=== PATIENT | male | born 1970 | race Asian ===

== ENCOUNTER 2019-07-17 10:09 | Inpatient (IN) | payer OTHER ==
[~2019-07-17] VITALS: Ht 172.7 cm; Wt 79.4 kg
--- NOTE | 2019-07-17 10:18 | NUR ---
EKG IN PROGRESS.
--- NOTE | 2019-07-17 10:34 | NUR ---
PATIENTS FRIEND STS THAT PT FELL TODAY. PATIENT STS THAT HE HAS A H/A AND ALSO STATES THAT HE FEELS SORE AND LIKE HE CAN'T STAND, PATIENT STATES THAT THIS HAS STARTED TODAY. PATIENT DENIES N/V/D.
--- NOTE | 2019-07-17 11:23 | NUR ---
DR. CASTRO AWARE OF HIGH B/P. WOULD LIKE TO INITIATE CATSCAN EXAM PRIOR TO MEDICATING.
[2019-07-17 11:40] LABS: BASOPHIL % 0.5 % (0-2); PLATELET COUNT 224 x10^3mcL (130-400); RED CELL DISTRIBUTION WIDTH 13.7 % (11.5-14.5)
[2019-07-17 12:04] LABS: CALCIUM 8.9 mg/dL (8.5-10.1); CARBON DIOXIDE 29.9 mmol/L (21-32); CHLORIDE SERUM 99 mmol/L (98-107); CREATININE SERUM 1.3 mg/dL (0.7-1.3); GFR1 > 60 mL/min; GLUCOSE SERUM 222 mg/dL (74-106); SODIUM SERUM 139 mmol/L (136-145)
[2019-07-17 12:09] LABS: ALBUMIN 3.9 g/dL (3.4-5.0); ALKALINE PHOSPHATASE 55 U/L (46-116); ALT/SGPT 15 U/L (16-63); AST/SGOT 15 U/L (15-37); BILIRUBIN TOTAL 0.6 mg/dL (0.20-1.00)
[2019-07-17 12:15] LABS: TOTAL PROTEIN, SERUM 8.4 g/dL (6.4-8.2)
--- NOTE | 2019-07-17 12:46 | NUR ---
PATIENT ASSISTED TO RESTROOM AT THIS TIME. NO PROBLEMS NOTED. [facility]
--- NOTE | 2019-07-17 13:31 | NUR ---
TELE NEURO DONE AT THIS TIME. ASSESSMENT DONE, AND ALL QUESTIONS ANSWERED PER . PER DR, HE BELIEVES THAT THE PATIENTS SYMPTOMS ARE ARISING FROM THE HIGH B/P. CONNECTION LOST AT THIS TIME. WILL AWAIT IF THE DOCOR CALLS BACK.
--- NOTE | 2019-07-17 14:55 | NUR ---
DR NOTIFIED OF PATIENTS B/P STILL REMAINING HIGH. DR WILL ORDER HYDRALIZINE. WILL AWAIT ORDERS.
[2019-07-17 15:54] LABS: T3 TOTAL 1.13 ng/mL
[2019-07-17 15:59] LABS: FREE T4 1.24 ng/dL (0.76-1.46); FREE THYROXINE INDEX 3.3 ug/dL (1.4-4.5); T4(THYROXINE) 9.7 ug/dL (4.7-13.3)
[2019-07-17 16:13] LABS: CHOLESTEROL/HDL RATIO 3.5; MAGNESIUM 2.2 mg/dL (1.8-2.4); PHOSPHOROUS 2.9 mg/dL (2.5-4.9)
--- NOTE | 2019-07-17 16:50 | NUR ---
DR HODGES INFORMED OF PATIENTS B/P REMAINING HIGH. WILL ORDER LABETLOL. WILL AWAIT ORDERS.
--- NOTE | 2019-07-17 17:59 | NUR ---
INFORMED DR HODGES THAT B/P IS 175/102. PER DR. HODGES, REASSESS PATIENT WITH A LARGER B/P CUFF.
--- NOTE | 2019-07-17 18:00 | NUR ---
REASSESSED PATIENTS B/P WITH LARGER CUFF. B/P READS: 185/112. WILL INFORM DR AT THIS TIME.
--- NOTE | 2019-07-17 18:14 | NUR ---
DR. HODGES AWARE OF PATIENTS B/P BEING 176/[address] HODGES, WILL ORDER PO B/P MEDICATION. WILL AWAIT ORDERS AT THIS TIME
--- NOTE | 2019-07-17 18:52 | NUR ---
PT IN BED RECEIVING U/S AT THIS TIME.
--- NOTE | 2019-07-17 19:02 | NUR ---
INFORMED GRACE CORTEZ OF PATIENTS B/P NOT BEING STABLE AT THIS TIME, AND NOT READY FOR TRANSFER AT THIS TIME.
--- NOTE | 2019-07-17 19:08 | NUR ---
RECEIVED REPORT FROM JAMES DAY SHIFT RN. PT SITTING COMFORTABLY IN GURNEY, AWAKE AND ALERT, RESP E/U, DENIES PAIN OR DIZZINESS. WILL CONTINUE TO MONITOR.
--- NOTE | 2019-07-17 19:21 | NUR ---
REPORT GIVEN TO GRACE KILGORE ON TELE TO ASSUME CARE FOR PT.
--- NOTE | 2019-07-17 19:29 | NUR ---
PT TRANSPORTED TO TELE AT THIS TIME BY EMT ANTHONY AND RN EDIS. PT IS AWAKE AND ALERT, RESP E/U, DENIES PAIN. VERBALIZED UNDERSTANDING OF PLAN OF CARE FOR ADMISSION. ACCOMPANIED BY FAMILY.
--- NOTE | 2019-07-17 19:35 | NUR ---
RECEIVED PT FROM ED VIA Sensitive Object, CAME IN DUE TO DIZZINESS. AAOX4. DENIES HEADACHE/DIZZINESS. ABLE TO FOLLOW SIMPLE COMMANDS. SPEECH IS CLEAR. HAND CORRESPONDENCE TRANSCRIBER ARE EQUAL. DENIES NUMBNESS/TINGLING SENSATION. NO SOB NOTED, LUNG SOUNDS CTA. DENIES CHEST PAIN/PRESSURE, SR W/ DEPRESSED T WAVE. DENIES ABDOMINAL DISCOMFORT. BOWEL SOUNDS ACTIVE. HAD A REGULAR BM TODAY. VOIDS. W/ DARK DISCOLORATION AND DRY SKIN, CALI. IV SITE ON THE RAC GAUGE 18 IS PATENT AND INTACT. SIDE RAILS UPX2. CALL LIGHT ON REACH. PT'S BROTHER AT BEDSIDE. LATEST JP=480/96. ENDORSED TO PRIMARY NURSE HUMBERTO FOR CONTINUITY OF CARE
[2019-07-17 19:51] VITALS: BP 165/96
[2019-07-17 19:59] VITALS: Ht 172.7 cm; Wt 79.4 kg
--- NOTE | 2019-07-17 20:45 | NUR ---
SPOKE WITH DR MATOS REGARDING PT'S BP, NO NEW ORDER RECEIVE AT THIS TIME, ALSO DR MATOS MADE AWARE OF TELE NEURO CONSULT WITH MRI BRAIN SUGGESTION BUT PER DR MATOS DAY TEAM IS AWARE OF IT.
[2019-07-17 21:15] LABS: microscopic required? NO
[2019-07-17 21:27] LABS: UA SPECIFIC GRAVITY <=1.005 (1.005-1.035); urine erythrocyte NEGATIVE (NEGATIVE)
[2019-07-17 21:36] LABS: AMPHETAMINE QUAL UR NONE DETECTED (See below)
--- NOTE | 2019-07-18 05:19 | NUR ---
PT THIS MORNING BP-184/107, NO PRN ANTI-HYPERTENSIVE MEDS IN ORDERS, PT DENIES ANY CHEST PAIN, CHEST DISCOMFORT, HEADACHE OR DIZZINESS, DR GRAF MADE AWARE, PER DR MCNEIL THAT PT IS ON permissive hypertension TREATMENT SO NO MEDS NEED TO GIVE AT THIS TIME.
[2019-07-18 05:46] VITALS: BP 184/107
--- NOTE | 2019-07-18 06:03 | NUR ---
DR SY AT BEDSIDE AND EVAL, DISCUSSED POC WITH PT, AWARE OF PT'S BP THIS MORNING, WAITING PHARMACY TO VERIFY ORDERS.
--- NOTE | 2019-07-18 06:19 | NUR ---
PT AWAKE AND RESTING IN BED, APRESOLINE 10MG PO GIVEN, MORNING BLOOD SUGAR-181 MG/DL WITH RISS 3 UNITS, DENIES CHEST PAIN OR CHEST DISCOMFORT, NO DISTRESS NOTED, WILL KEEP TO MONITOR.
--- NOTE | 2019-07-18 07:00 | NUR ---
RECEIVED REPORT FROM HUMBERTO RN, PT IN NO ACUTE RESP DISTRESS
--- NOTE | 2019-07-18 07:10 | NUR ---
PT IN BED, VERBAL, ABLE TO MAKE NEEDS KNOWN, DENIED CP/PRESSURE/GARCIA, DENIED N/V/DIZZINESS, IN NO ACUTE RESP DISTRESS, TELE #7, NSR, HR-79 AT THIS TIME, PLAP PULSES, CAP REFILL < 2 SECS, AMBULATORY, CONTINENT, SEE ASSESSMENT, IV PATENT AND NO INFILTRATION, HELPLOCKED, ALL NEEDS ADDRESSED AT THIS TIME, SAFETY PROTOCOL FOLLOWED, CONTINUE TO MONITOR
--- NOTE | 2019-07-18 07:22 | NUR ---
BEDSIDE HANDOFF REPORT GIVEN TO THI-RN, ALL QUESTIONS ANSWERED AND CONCERNS ADDRESSED.
[2019-07-18 10:03] VITALS: BP 185/101
--- NOTE | 2019-07-18 10:06 | NUR ---
PT IN NO ACUTE RESP DISTRESS, AM MED GIVEN PER MD ORDER VIA EMAR, TAKEN WELL, NO ASE NOTED AT THIS TIME, ALL NEEDS ADDRESSED, SAFETY PROTOCOL FOLLOWED, WILL CONTINUE TO MONTIOR
--- NOTE | 2019-07-18 10:59 | NUR ---
DR ALIYAH ARAYA MADE AWARE OF PT' CURRENT BP, NEW ORDER ONTAINED, PT MADE AWARE, CONTINUE TO MONITOR
--- NOTE | 2019-07-18 11:40 | NUR ---
FAMILY VISITED PT, DISCUSSED PT CONDITION WITH
--- NOTE | 2019-07-18 13:45 | NUR ---
BROTHER CALLED AND CONFIRMED THAT PT WILL STAY IN THE HOSPITAL TONIGHT FOR OBSERVATION, PT AND FAMILY MADE AWARE
[2019-07-18 13:48] VITALS: BP 203/116
--- NOTE | 2019-07-18 14:37 | NUR ---
PT HAD CARDIO ECHO GRAM DONE AT BEDSIDE, PT IN NO ACUTE RESP DISTRESS
--- NOTE | 2019-07-18 15:20 | NUR ---
EKG DONE AT BEDSIDE, PT IN NO ACUTE RESP DISTRESS
[2019-07-18 16:59] VITALS: BP 191/122
--- NOTE | 2019-07-18 18:17 | NUR ---
BP-180/96 (114), HR-86, HYDRALAZINE IVP GIVEN PER DR ARAYA ORDER VIA EMAR, PT NOT IN ACUTE RESP DISTRESS, CONTINUE TO MONITOR
--- NOTE | 2019-07-18 18:20 | NUR ---
PT IN BED, VERBAL, ABLE TO MAKE NEEDS KNOWN, IN NO ACUTE RESP DISTRESS, NO SOB/COUGH, DENIED CP/PRESSURE/GARCIA, DENIED N/V/DIZZINESS, AMBULATORY, FALL RISK, CONTINENT, TELE, FAMILY AT BEDSIDE, ALL NEEDS ADDRESSED AT THIS TIME, SAFETY PROTOCOL FOLLOWED, WILL ENDORSE TO ONCOMING RN
[2019-07-18 18:30] VITALS: BP 151/80
--- NOTE | 2019-07-18 18:32 | NUR ---
BP-151/80 (104), HR-84, PT IN STABLE CONDITION, RESTING IN BED, EVENT MARKED ON TELE
--- NOTE | 2019-07-18 20:00 | NUR ---
PT SEEN, RESTING IN BED, ALERT AND ORIENTED X 4, DENIES HEADACHE OR DIZZINESS, CLEAR SPEECH, BREATHING EVEN AND UNLABORED, LUNG SOUNDS CLEAR, ON ROOM AIR WITH NO RESP DISTRESS NOTED, ON TELE#7 NSR WITH DEPRESSED T-WAVE, DENIES CHEST PAIN, PULSES PALPABLE, NO EDEMA NOTED, AMBULATORY WITH STEADY AGIT, ABD ROUND AND SOFT WITH ACTIVE BS, NO BM AT THIS TIME, VOIDING FREELY, NO DISTRESS NOTED, WILL KEEP TO MONITOR.
[2019-07-18 21:03] VITALS: BP 160/82
--- NOTE | 2019-07-18 23:29 | NUR ---
PT IS VERY IMPULSIVE TONIGHT, FOUND PT WAS TRYING TO WALK TO BATHROOM WITH VERY UNSTEADY GAIT, EDUCATED PT WITH HIGH RISK OF FALLING AND USE CALL LIGHTS WHEN HE NEEDS TO USE BATHROOM, PT IS AAO X 4 AND CLEAR SPEECH, ASSITED PT BACK TO BED WITHOUT ANY INCIDENT, WILL CONTINUE TO MONITOR.
[2019-07-19 05:45] VITALS: BP 144/78
--- NOTE | 2019-07-19 06:06 | NUR ---
PT AWAKE AND RESTING IN BED, SLEPT ON AND OFF WHOLE NIGHT, BEING IMPULSIVE AND NON-COMPLIANT ALL NIGHT, RE-EDUCATED PT WITH FALL PRECAUTION DUE TO UNSTEADY GAIT BUT PT STILL IMPULSIVE, MORNING BLOOD SUGAR- 192 MG/DL WITH RISS 3 UNITS, SIDE RAILS UP, BED ALARM ON, NO DISTRESS NOTED, WILL KEEP TO MONITOR.
[2019-07-19 06:23] LABS: BASOPHIL % 0.8 % (0-2); PLATELET COUNT 231 x10^3mcL (130-400); RED CELL DISTRIBUTION WIDTH 14.4 % (11.5-14.5)
[2019-07-19 06:39] LABS: CALCIUM 8.7 mg/dL (8.5-10.1); CARBON DIOXIDE 23.7 mmol/L (21-32); CHLORIDE SERUM 103 mmol/L (98-107); CREATININE SERUM 1.2 mg/dL (0.7-1.3); GFR1 > 60 mL/min; GLUCOSE SERUM 199 mg/dL (74-106); MAGNESIUM 1.8 mg/dL (1.8-2.4); PHOSPHOROUS 3.8 mg/dL (2.5-4.9); POTASSIUM SERUM 3.1 mmol/L (3.5-5.1); SODIUM SERUM 141 mmol/L (136-145)
--- NOTE | 2019-07-19 08:00 | NUR ---
RECEIVED PATIENT ALERT/CONFUSING. UNABLE TO REMEMBER THE NAME OF PRESIDENT OF [employer], UNABLE TO TELL THE DATE OF TODAY. SLURRED SPEECH. UNALBE TO MADE NEEDS KNOWN. LT FACIAL DROOP AND LT SIDE WEAKNESS. NO S/S OF PAIN. TELE#7; SR; HR= 93; DENIED CHEST PAIN. NO RESP DISTRESS ON RA. BREATHING SOUND CLEAR. FINISHED 100% OF CCHO DIET. IVHL'D TO [facility], SITE CLEAN. CALL LIGHT IN REACH. SIDE RAILS UP.
[2019-07-19 09:31] VITALS: BP 157/90
--- NOTE | 2019-07-19 11:55 | NUR ---
PATIENT ANXIETY AND DISCOMFORT, STATED WANT TO VOID. URINAL OFFERED 3 TIMES. BUT PATIENT UNABLE TO VOID VIA URINAL. JYOTI NOTIFIED. BLAADER SCAN GIVEN, 540CC OF URINE DETECTED. NEW ORDER OF LAW 16 FR INSERTED. 450 CC OF CINDY COLORED URINE COLLECTED.
[2019-07-19 13:30] VITALS: BP 167/99
--- NOTE | 2019-07-19 13:30 | NUR ---
TELE NEURO INITIATED AT HIS TIME. ATTENDING NURSE NORBERT MADE AWARE.
--- NOTE | 2019-07-19 14:12 | NUR ---
TELE NEURO CONSULTATION DONE. DR. FENTON, NEUROLOGIST, CALLED Felicity MONTES
--- NOTE | 2019-07-19 14:52 | NUR ---
GOT ORDER OF TRANSFER TO ICU.
[2019-07-19 15:16] VITALS: BP 151/86
[2019-07-19 16:10] VITALS: BP 143/75
--- NOTE | 2019-07-19 16:10 | NUR ---
TRANSFERED TO ICU-8 PER ORDER. REPORT GIVEN TO GRACE WOODARD. V/S =99.2 (OR) - 93-20-130/71; O2 SAT 97% ON RA.
--- NOTE | 2019-07-19 16:22 | NUR ---
RECEIVED PT TRANSFER FROM [facility] UNIT VIA BED WITH NURSE TOUSSAINT AT BEDSIDE. PT SPEAK MADRINE AND SPANISH. COMMUNICATED TO PT WITH MADRINE, PT IS ABLE TO ANSWER QUESTIONS IN SLURRED SPEECH. FACIAL DROOP NOTED. PUPILS EQUAL, REACT TO LIGHT BRISK. LEFT SIDE WEAKNESS. PT BREATHING ON RA, EVEN, UNLABORED. LAW IN PLACE, DRAINING VIA GRAVITY. URINE COLOR YELLOW. IV SITE RAC, SALINE LOCK. VS CHECK: 99.2, BP 143/72, HR 85, O2 SAT 98%, RR 12. WILL CONTINUE TO MONITOR.
--- NOTE | 2019-07-19 16:54 | NUR ---
PILY GODINEZ AND JESUS RN TRANSPORTING PATIENT TO MRI. PATIENT REMOVED FROM ICU SUSTAINABILITY OFFICER AND PLACED ON PORTABLE MONITOR FOR TRANSPORT.
--- NOTE | 2019-07-19 17:19 | NUR ---
RECEIVED TELEPHONE CALL FROM [employer] STATING THAT PATIENT REFUSING MRI BECAUSE HE IS NERVOUS AND CLAUSTROPHOBIC. JESUS EDWARDS ASKED PATIENT IF SHE COULD GIVE HIM SOME MEDICATION TO HELP HIM WITH HIS ANXIOUSNESS. PATIENT REFUSED STATING HE DID NOT WANT ANY MEDICATIONS.
--- NOTE | 2019-07-19 17:25 | NUR ---
SPOKE WITH JYOTI SHOWER ATTENDANT AND REPORTED PATIENT'S ANXIOUS. NEW ORDER RECEIVED FOR 2 MG ATIVAN IVP FOR ANXIOUSNESS ONCE.
--- NOTE | 2019-07-19 17:33 | NUR ---
PATIENT BACK ON UNIT ACCOMPANIED BY BRADLEY LINEBACKER CREWMEMBER AND JESUS RN. PATIENT'S BROTHER SPEAKING WITH PATIENT ATTEMPTING TO ENCOURAGE HIM TO PROCEED WITH THE MRI. PATIENT CONTINUES TO REFUSE MRI AND ANY MEDICATION. EDUCATION PROVIDED REGARDING IMPORTANCE OF MRI AND RESULTS. PATIENT CONTINUES TO REFUSE. PATIENT'S BROTHER TELEPHONING THEIR FATHER TO SPEAK WITH PATIENT VIA TELPHONE FOR EMOTIONAL SUPPORT.
--- NOTE | 2019-07-19 17:42 | NUR ---
PATIENT AGREEING TO MRI AFTER SPEAKING WITH HIS FATHER VIA TELEPHONE. PATIENT ALSO AGREEING TO MEDICATION FOR ANXIOUSNESS DURING THE MRI. JESUS RN AT BEDSIDE WITH PATIENT, POLICE PATROL LIEUTENANT, PATIENT AND PATIENT'S BROTHER.
--- NOTE | 2019-07-19 18:40 | NUR ---
PT BACK FROM MRI. PT IS DROWSY BUT EASILY AROUSED BY AUDITORY STIMULI. PT FOLLOW SIMPLE COMMAND. LEFT SIDE WEAKNESS, LIMITED ROM. ASSIST PT WITH DINNER TRAY, PT PRESENT VISION PROBLEM, UNABLE TO SEE AND USE UNTENSIL SELF. PT'S BROTHER AT BEDSIDE. PT'S VS STABLE: HR 90, O2 SAT 98%, BP 144/76. WILL ENDORSE PT CARE TO COMING NURSE.
--- NOTE | 2019-07-19 19:10 | NUR ---
RECEIVED REPORT FROM GRACE LEE. POC DISCUSSED. NURSING UPDATES. SEE SHIFT ASSESSMENT FOR ASSESSMENT.
--- NOTE | 2019-07-19 19:17 | NUR ---
SPOKE WITH VENTURA FROM [facility] AND REPORTED MRI RESULTS. FAXINGS RESULTS OVER TO TRANSFER CENTER AT . VENTURA STATED HE WILL WORK ON GETTING THE PATIENT OVER PROMPTLY.
--- NOTE | 2019-07-19 19:51 | NUR ---
NEURO ASSESSMENT DONE. SLURRED SPEECH W/ INABILITY TO USE LEFT SIDED FACIAL FEATURES IN SMILING. UNABLE TO SQUEEZE W/ LEFT HAND AND UNABLE TO LIFT LEFT LEG.
[2019-07-19 19:59] VITALS: BP 143/65
--- NOTE | 2019-07-19 20:06 | NUR ---
MADE A FOLLOW UP PHONE CALL TO [facility]. SPOKE TO VENTURA. HE STATED THAT THEY ARE "STILL WORKING ON IT, AND THEY DO NOT HAVE A BED YET". WILL AWAIT FURTHER INSTRUCTION.
--- NOTE | 2019-07-19 21:03 | NUR ---
SWALLOW EVAL DONE. PT UNABLE TO SWALLOW EFFICIENTLY. PT W/ POCKETING W/ PUDDING ON RIGHT SIDE OF MOUTH. DIFFICULTY SWALLOWING. WILL ENDORSE.
--- NOTE | 2019-07-19 21:32 | NUR ---
REPORT GIVEN TO JOCY PRODUCTION CLERKS SUPERVISOR. BED NUMBER [id number]. NUMBER [id number]. NURSING UPDATES. POC DISCUSSED. [facility] @ BEDSIDE. REPORT GIVEN TO [facility]. PT TRANSFER W/ [facility] TEAM.
--- NOTE | 2019-07-19 21:38 | NUR ---
REPORT GIVEN TO EMT OF [facility]. ALL QUESTIONS AND CONCERNS ANSWERED. PACKET PROVIDED, LAST VITAL SIGNS TAKEN. ENTRY LEVEL DRAFTER AWARE. PT NOW OFF THE FLOOR ON ROUTE TO [facility].
== END 2019-07-19 21:43 | disposition short-term general hospital (02) | DRG 65 ==
LOC: ED 10:09 → DU 14:24 → IC 07-19 15:20
PROVIDERS: Emergency Medicine; General Practice; ADMIT Internal Medicine
DX: I63.9 Cerebral infarction, unspecified (principal); I16.1 Hypertensive emergency; G81.94 Hemiplegia, unspecified affecting left nondominant side; E78.5 Hyperlipidemia, unspecified; E11.9 Type 2 diabetes mellitus without complications; I10 Essential (primary) hypertension; R47.81 Slurred speech; W05.0XXA Fall from non-moving wheelchair, initial encounter; Y93.89 Activity, other specified; Y92.098 Other place in other non-institutional residence as the place of occurrence of the external cause; Y99.8 Other external cause status; Z82.49 Family history of ischemic heart disease and other diseases of the circulatory system
CPT/HCPCS: 82962; 83880; 84439; 97116-GP; 97530-GP; G0378; J0360; J1815; J2060; J3490; J7030; Q0092; Q9967